=== PATIENT | male | born 1950 ===

== ENCOUNTER 2021-08-20 16:27 | Emergency (ER) | payer MEDICARE ==
[2021-08-20 17:13] LABS: Bilirubin Negative (Negative); Blood, Urine Trace (Negative); Clarity Extra Turbid (Clear); Glucose, Urine (Dipstick) Normal (Negative); Ketone, Urine Negative (Negative); Leukocyte 500 Leu/uL (Negative); Nitrite 2+ (Negative); Protein, Urine (Dipstick) 30 mg/dL (Neg-Trace); Specific Gravity, Urine 1.019 (1.002-1.036); Squamous Epithelial 0-3 HPF (0-3); Urobilinogen Normal mg/dL (Less than 2); pH, Urine 7.5 (5.0-9.0)
[2021-08-20 17:22] LABS: Bacteria/HPF 2+ HPF (None Seen); WBC/HPF 21-50 HPF (0-3)
[2021-08-20] MEDS ORDERED: Lidocaine Viscous Sol 2% 15 ml UD Cup ONE (18:57)
[2021-08-20] MEDS ORDERED: cefTRIAXone\\ROCEPHIN 1 GM VIAL ONE (22:45)
[2021-08-20] MEDS ORDERED: Lidocaine 1% PF 5 ML VIAL ONE (22:46)
== END 2021-08-20 23:45 | disposition home or self-care (01) ==
LOC: ERS 16:27
DX: N35.919 Unspecified urethral stricture, male, unspecified site (principal); R33.9 Retention of urine, unspecified; I10 Essential (primary) hypertension
CPT/HCPCS: 51702; 51798; 81003; 81015; 87077; 87086; 87186; 96372; 99284; J0696